=== PATIENT | female | born 1985 | race Caucasian/White ===

== ENCOUNTER 2020-12-04 16:08 | Emergency (ER) | payer BC, SELFPAY ==
[2020-12-04 16:11] VITALS: BP 157/68; PULSE 92; RESP 16; TEMP 36.7; O2SAT 100; BMI 23.0
--- NOTE | 2020-12-04 16:21 | ECG_ITS ---
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 Measurements Intervals [place] Rate: 80 P: 67 IA: 137 QRS: 57 QRSD: 83 T: 35 QT: 345 QTc: 398 Interpretive Statements SINUS RHYTHM WITH SINUS ARRHYTHMIA POSSIBLE RIGHT VENTRICULAR CONDUCTION DELAY [RSR (QR) IN V1/V2] MINIMAL ST DEPRESSION [0.025+ mV ST DEPRESSION] No previous ECG available for comparison Electronically Signed On 12-05-2020 0:00:01 CDT by Izzy Jackson M.D. [id number] f
--- NOTE | 2020-12-04 16:21 | XRR_ITS ---
PROCEDURE INFORMATION: Exam: XR Chest Exam date and time: 12/04/2020 4:21 PM Age: 35 years old Clinical indication: Pain; Angina pectoris; Additional info: Chest pain TECHNIQUE: Imaging protocol: XR of the chest. Views: 1 view. COMPARISON: No relevant prior studies available. FINDINGS: Lungs: Unremarkable. No consolidation. Pleural spaces: Unremarkable. No pleural effusion. No pneumothorax. Heart/Mediastinum: Unremarkable. No cardiomegaly. Bones/joints: Thoracolumbar curvature. XR/XR chest 1V portable [id number] IMPRESSION: No acute findings.
[2020-12-04 16:45] VITALS: BP 107/66; PULSE 60; O2SAT 98
[2020-12-04 17:11] VITALS: BP 107/66; PULSE 63; O2SAT 99
--- NOTE | 2020-12-04 17:18 | W.ED.GENADLT ---
Documented by User: Jayde Adler MD 12/05/20 11:08 HPI - General Adult General: Chief complaint: Chest Pain Stated complaint: CP Time Seen by Provider: 12/04/20 16:21 History of Present Illness: HPI narrative: CC: Chest Pain HPI: This is a 35yo patient hx of primary lyme disease who successfully underwent full abx last month presenting to the ED complaining of acute sudden onset intermittent left upper chest pain x 30 minutes WITHOUT radiation to the back or shoulders. No associated with shortness of breath, chest pain or dyspnea on exertion. Pain is not tearing in nature and does not radiate to the back. Pain not associated with vomiting or PO intake. Denies any recent sympathomimetic drug use. Patient denies any cough. Denies palpitations, dysphagia, diaphoresis, radiation of pain to bilateral arms, jaw. Denies F/N/V/D. Patient denies any recent immobility, surgery, unilateral leg swelling, or prior PE. Patient denies any orthopnea. Patient is a progesterone only IUD and has had a recent flight of only 1 hr to [place] without any leg swelling. Currently chest pain free. In addition, patient reported 1 month of palpitations since treatment for lyme disease. She denies any syncope. Reports improvement in joint pain and resolution of thigh rash. Onset: 30 minutes ago Duration: Chest pain Location: home Severity: mild/moderate Review of Systems Narrative: Constitutional: No fever, no chills. HEENT: No vision changes, no sore throat. CV:+chest pain, +palpitations. PULM: No cough, no dyspnea. GI: No abdominal pain, no N/V/D. : No dysuria, no frequency, no hematuria. MSKEL: No arthralgias, no edema. SKIN: No new rashes, no lesions. NEURO: No headache, no focal weakness. HEME: No easy bleeding or bruising. PSYCH: No change in mood or affect. [facility] ED Female Reproductive History: Date of last menstrual period: 09/17/20 Physical Exam Narrative: EXAM NARRATIVE: Head: Atraumatic, normocephalic Eyes: PERRL, EOMI, conjunctiva without injection ENT: Throat without erythema, lesions or exudate, MMM NECK: Supple, trachea midline, no JVD LUNGS: LCTA CV: RRR, S1,S2, no murmurs, rubs, gallops. 2+ peripheral pulses in UEs ABDOMEN: Soft, nontender, nondistended, BS x4, no rigidity, no guarding, no rebound EXTREMITY: Normal ROM, no pitting edema, no calf tenderness to palpation SKIN: No rash or erythema NEURO: Awake and alert. No focal motor deficits. PSYCH: Normal mood and affect. Course Vital Signs: Vital signs: Vital Signs Temperature 98.0 F 12/04/20 16:11 Pulse Rate 63 12/04/20 19:23 Respiratory Rate 22 H 12/04/20 19:23 Blood Pressure 111/78 12/04/20 19:23 Pulse Oximetry 99 12/04/20 19:23 MDM - General Adult MDM Narrative: Medical decision making narrative: [35]yo patient w/ hx of recent lyme disease who completed 2 weeks of abx presenting to the ED With acute substernal chest pain X 30 minutes ago. Given History And Exam today I have no suspicion ACS/UA/NSTEMI. Today, I have NO suspicion for pneumothorax, pneumonia, pulmonary embolus, tamponade, aortic dissection or other emergent problem as a cause for this presentation. ECG did not show any signs of acute STEMI. Workup: ECG, CXR, CBC, BMP, Troponin x 2 Intervention: Tylenol Findings: ECG: No overt evidence of STEMI, no hyperacute T waves, localizable STD or T wave inversions. No evidence of Brugada?s sign, delta wave, epsilon wave, significantly prolonged QTc, or malignant arrhythmia. No Q waves. No findings of heart block or MS prolongation on EKG. Troponin: Negative x 2 Other Labs unremarkable for emergent problems. CXR: Without PTX, PNA, or widened mediastinum Disposition: Discharge. Given strict return precaution any worsening pain, fever/chills, focal weakness, difficulty breathing, any new or concerning complaints. Given patient's concern that this may be Lyme carditis even though there is no EKG findings and patient has underwent successful treatment, decision was made to have patient follow-up with cardiology should she have any further questions. Lab Data: Labs: Lab Results 12/04/20 12/04/20 12/04/20 17:06 17:06 17:06 WBC 7.1 10^3/uL 10^3/ uL (4.0-10.0) RBC 4.32 10^6/uL 10^6 /uL (4.1-5.3) Hgb 13.5 g/dL g/dL (11.5-15.3) Hct 41.5 % % (37.0-47.0) MCV 96.1 fl fl (81-99) MCH 31.3 pg pg (28.0-34.0) MCHC 32.5 g/dL g/dL (30.0-36.0) RDW 11.8 % L % (12.1-15.1) Plt Count 235 10^3/cmm 10^3 /cmm (130-400) MPV 10.7 fL H fL (7.4-10.4) Neut % (Auto) 64.0 % % Lymph % (Auto) 26.8 % % [place] % (Auto) 7.1 % % Eos % (Auto) 1.3 % % Baso % (Auto) 0.7 % % Neut # (Auto) 4.52 10^3/uL 10^3 /uL (1.8-7.7) Lymph # (Auto) 1.9 10^3/uL 10^3/ uL (0.8-4.8) [place] # (Auto) 0.5 10^3/uL 10^3/ uL (0.2-0.9) Eos # (Auto) 0.1 10^3/uL 10^3/ uL (0.0-0.8) Baso # (Auto) 0.1 10^3/uL 10^3/ uL (0.0-0.1) Nucleated RBC % (a uto) 0 % % Nucleated RBCs # 0.0 /100WBC /100W BC Sodium 139 mmol/L mmol/L (136-145) Potassium 4.0 mmol/L mmol/L (3.5-5.1) Chloride 103 mmol/L mmol/L (98-107) Carbon Dioxide 25 mmol/L mmol/L (22-29) Anion Gap 15.0 (5-19) BUN 12 mg/dL mg/dL (6-20) Creatinine 0.7 mg/dL mg/dL (0.5-0.9) GFR Calculation 95.2 mL/min mL/mi n (90-130) Glucose 88 mg/dL mg/dL (65-115) Calculated Osmolal ity 287 mOsm/kg mOsm/ kg (285-295) Calcium 9.8 mg/dL mg/dL (8.5-10.5) Troponin T Gen 5 n g/L Troponin T 120 Min [place] Delta Troponin T Urine HCG, Qual Negative (Negative) 12/04/20 12/04/20 17:06 18:29 WBC RBC Hgb Hct MCV MCH MCHC RDW Plt Count MPV Neut % (Auto) Lymph % (Auto) [place] % (Auto) Eos % (Auto) Baso % (Auto) Neut # (Auto) Lymph # (Auto) [place] # (Auto) Eos # (Auto) Baso # (Auto) Nucleated RBC % (a uto) Nucleated RBCs # Sodium Potassium Chloride Carbon Dioxide Anion Gap BUN Creatinine GFR Calculation Glucose Calculated Osmolal ity Calcium Troponin T Gen 5 n g/L 6 ng/L ng/L (0-10) Troponin T 120 Min [place] 6.00 ng/L ng/L (0-10) Delta Troponin T TNP Urine HCG, Qual Imaging Data^: Other Imaging: Radiologist's impression: [employer] [id number] ReportSigned Patient: Melissa Walton #: [id number]: 1985Acct#:[id number]/Sex: 35 / FADM Date: 12/04/20Loc: ERRoom/Bed:Attending Dr: Ordering Provider/Ordering MD: Jayde Adler MD Date of Service: 12/04/20 Procedure(s): XR chest 1V portable [id number] Accession Number(s): [id number] Report Number: [id number] PROCEDURE INFORMATION: Exam: XR Chest Exam date and time: 12/04/2020 4:21 PM Age: 35 years old Clinical indication: Pain; Angina pectoris; Additional info: Chest pain TECHNIQUE: Imaging protocol: XR of the chest. Views: 1 view. COMPARISON: No relevant prior studies available. FINDINGS: Lungs: Unremarkable. No consolidation. Pleural spaces: Unremarkable. No pleural effusion. No pneumothorax. Heart/Mediastinum: Unremarkable. No cardiomegaly. Bones/joints: Thoracolumbar curvature. XR/XR chest 1V portable [id number] IMPRESSION: No acute findings. Dictated By:Hemant Aaron By:Hemant Aaron Date/Time:12/04/20 1725 Discharge Plan Discharge Patient Disposition: Home Clinical Impression: Chest pain Qualifiers: Chest pain type: unspecified Qualified Code(s): R07.9 - Chest pain, unspecified Condition: Stable Prescriptions: New acetaminophen 500 mg tablet 500 mg PO Q6H PRN (Reason: pain) 5 Days Qty: 20 RF: 0 Discharge Orders: Discharge ED (Routine); Ordered 12/04/20 Ordered By: Paxton aMry Discharge Diet: Advance as tolerated Discharge Activity: Resume usual activity Patient Instructions: Chest Pain (ED) Activity Restrictions/Additional Instructions: Our manager of case will have you follow-up with Cardiology in the next few days. You would be expected to have a phone call with our manager of case who will put you on the schedule. Come back to the emergency room if you have any worsening chest pain, shortness of breath, fever/chills, weakness in your arms or legs, numbness, or any new or concerning complaints Coding Level of Care Code ED Sunglass Clip Attacher for Chg Fwd Documented by User: Paxton Mary MD 12/04/20 19:08 HPI - General Adult General: Chief complaint: Chest Pain Stated complaint: CP Time Seen by Provider: 12/04/20 16:21 Course Vital Signs: Vital signs: Vital Signs Temperature 98.0 F 12/04/20 16:11 Pulse Rate 63 12/04/20 19:23 Respiratory Rate 22 H 12/04/20 19:23 Blood Pressure 111/78 12/04/20 19:23 Pulse Oximetry 99 12/04/20 19:23 MDM - General Adult MDM Narrative: Medical decision making narrative: Patient presents with chest pains atypical in nature. Her second troponin here is negative. She has no signs of acute coronary syndrome. She has no signs of pulmonary embolism or dissection. She is stable for discharge is to follow-up with PCP and return if worsening. Lab Data: Labs: Lab Results 12/04/20 12/04/20 12/04/20 17:06 17:06 17:06 WBC 7.1 10^3/uL 10^3/ uL (4.0-10.0) RBC 4.32 10^6/uL 10^6 /uL (4.1-5.3) Hgb 13.5 g/dL g/dL (11.5-15.3) Hct 41.5 % % (37.0-47.0) MCV 96.1 fl fl (81-99) MCH 31.3 pg pg (28.0-34.0) MCHC 32.5 g/dL g/dL (30.0-36.0) RDW 11.8 % L % (12.1-15.1) Plt Count 235 10^3/cmm 10^3 /cmm (130-400) MPV 10.7 fL H fL (7.4-10.4) Neut % (Auto) 64.0 % % Lymph % (Auto) 26.8 % % [place] % (Auto) 7.1 % % Eos % (Auto) 1.3 % % Baso % (Auto) 0.7 % % Neut # (Auto) 4.52 10^3/uL 10^3 /uL (1.8-7.7) Lymph # (Auto) 1.9 10^3/uL 10^3/ uL (0.8-4.8) [place] # (Auto) 0.5 10^3/uL 10^3/ uL (0.2-0.9) Eos # (Auto) 0.1 10^3/uL 10^3/ uL (0.0-0.8) Baso # (Auto) 0.1 10^3/uL 10^3/ uL (0.0-0.1) Nucleated RBC % (a uto) 0 % % Nucleated RBCs # 0.0 /100WBC /100W BC Sodium 139 mmol/L mmol/L (136-145) Potassium 4.0 mmol/L mmol/L (3.5-5.1) Chloride 103 mmol/L mmol/L (98-107) Carbon Dioxide 25 mmol/L mmol/L (22-29) Anion Gap 15.0 (5-19) BUN 12 mg/dL mg/dL (6-20) Creatinine 0.7 mg/dL mg/dL (0.5-0.9) GFR Calculation 95.2 mL/min mL/mi n (90-130) Glucose 88 mg/dL mg/dL (65-115) Calculated Osmolal ity 287 mOsm/kg mOsm/ kg (285-295) Calcium 9.8 mg/dL mg/dL (8.5-10.5) Troponin T Gen 5 n g/L Troponin T 120 Min [place] Delta Troponin T Urine HCG, Qual Negative (Negative) 12/04/20 12/04/20 17:06 18:29 WBC RBC Hgb Hct MCV MCH MCHC RDW Plt Count MPV Neut % (Auto) Lymph % (Auto) [place] % (Auto) Eos % (Auto) Baso % (Auto) Neut # (Auto) Lymph # (Auto) [place] # (Auto) Eos # (Auto) Baso # (Auto) Nucleated RBC % (a uto) Nucleated RBCs # Sodium Potassium Chloride Carbon Dioxide Anion Gap BUN Creatinine GFR Calculation Glucose Calculated Osmolal ity Calcium Troponin T Gen 5 n g/L 6 ng/L ng/L (0-10) Troponin T 120 Min [place] 6.00 ng/L ng/L (0-10) Delta Troponin T TNP Urine HCG, Qual Discharge Plan Discharge Patient Disposition: Home Clinical Impression: Chest pain Qualifiers: Chest pain type: unspecified Qualified Code(s): R07.9 - Chest pain, unspecified Condition: Stable Prescriptions: New acetaminophen 500 mg tablet 500 mg PO Q6H PRN (Reason: pain) 5 Days Qty: 20 RF: 0 Discharge Orders: Discharge ED (Routine); Ordered 12/04/20 Ordered By: Paxton Mary Discharge Diet: Advance as tolerated Discharge Activity: Resume usual activity Patient Instructions: Chest Pain (ED) Activity Restrictions/Additional Instructions: Our manager of case will have you follow-up with Cardiology in the next few days. You would be expected to have a phone call with our manager of case who will put you on the schedule. Come back to the emergency room if you have any worsening chest pain, shortness of breath, fever/chills, weakness in your arms or legs, numbness, or any new or concerning complaints Coding Level of Care Code ED Sunglass Clip Attacher for Salvatore Fischer
[2020-12-04 17:29] LABS: Basophils # 0.1 10^3/uL (0.0-0.1); Basophils % 0.7 %; Eosinophils # 0.1 10^3/uL (0.0-0.8); Eosinophils % 1.3 %; Hematocrit 41.5 % (37.0-47.0); Hemoglobin 13.5 g/dL (11.5-15.3); Lymphocytes # 1.9 10^3/uL (0.8-4.8); Lymphocytes % 26.8 %; Mean Corpuscular HGB Conc 32.5 g/dL (30.0-36.0); Mean Corpuscular Hemoglobin 31.3 pg (28.0-34.0); Mean Corpuscular Volume 96.1 fl (81-99); Mean Platelet Volume 10.7 fL (7.4-10.4); Monocytes # 0.5 10^3/uL (0.2-0.9); Monocytes % 7.1 %; Neutrophils # 4.52 10^3/uL (1.8-7.7); Nucleated Red Blood Cells % 0 %; Platelet Count 235 10^3/cmm (130-400); Red Blood Count 4.32 10^6/uL (4.1-5.3); Red Cell Distribution Width 11.8 % (12.1-15.1); White Blood Count 7.1 10^3/uL (4.0-10.0)
[2020-12-04 17:45] VITALS: BP 106/73; PULSE 75; O2SAT 100
[2020-12-04 17:47] LABS: Troponin T (5th) Once 6 ng/L (0-10)
[2020-12-04 17:48] LABS: Blood Urea Nitrogen 12 mg/dL (6-20); Calcium 9.8 mg/dL (8.5-10.5); Carbon Dioxide 25 mmol/L (22-29); Chloride 103 mmol/L (98-107); Glomerular Filtration Rate 95.2 mL/min (90-130); Glucose 88 mg/dL (65-115); Osmolality Calculated 287 mOsm/kg (285-295); Sodium 139 mmol/L (136-145)
[2020-12-04 18:20] VITALS: BP 111/78; PULSE 66; O2SAT 99
[2020-12-04 19:23] VITALS: BP 111/78; PULSE 63; RESP 22; O2SAT 99
--- NOTE | 2020-12-05 10:44 | DCPLANNER ---
Addendum entered by Damaris Castellano 04/04/21 15:00: Patient had a follow up appointment scheduled for 12.17.[address] Jackson at [facility] - patient did attend appointment. Original Note: personal lines account manager had message to schedule a follow up appointment for patient with heart care. personal lines account manager called heart care, spoke with Emelina, gave clinic patients information. A follow up appointment was scheduled for Thursday, December 17, 2020 at 2:[address] Jackson. personal lines account manager called patient with appointment information.
== END 2020-12-04 19:28 | disposition home or self-care (01) ==
PROVIDERS: Emergency Medicine; Emergency Provider Emergency Medicine
DX: R07.9 Chest pain, unspecified (principal)
CPT/HCPCS: 71045; 80048; 81025; 84484; 85025; 93005; 99283

== ENCOUNTER 2021-02-10 12:52 | Outpatient (CLI) | payer BC, SELFPAY ==
[2021-02-10 12:55] VITALS: BMI 23.0
--- NOTE | 2021-02-10 12:55 | ECG_ITS ---
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 Interpretive Statements NAME OF STUDY: TREADMILL STRESS ECHOCARDIOGRAM INDICATION: Chest Pain, PROCEDURE: At the baseline, the patient's blood pressure was 117/65 with a heart rate of 67. The baseline electrocardiogram showed normal sinus rhythm with normal ST-Ts.. The patient exercised for 7 minutes and 36 seconds on a standard Mani protocol. Patient attained a maximum heart rate of 189 beats per minute( 102 % of the maximum predicted heart rate) with a blood pressure at the peak exercise of 166/79 mm Hg. The EKG at the peak exercise revealed 1 to 1.[address] depressions in leads II, III, aVF, V5 and V6. Patient did not have any chest pain or any significant EKG changes with the exercise During the recovery phase, there were no new changes. The EKG changes, reverted back to the baseline. Blood pressure at the end of the recovery phase was 113/64 mm Hg with a heart rate of 99 per minute. Echocardiographic pictures were taken at the baseline, immediately following the peak exercise and during the recovery phase. CONCLUSION: 1. Abnormal EKG response to treadmill exercise suggesting inferolateral wall ischemia 2. No exercise-induced chest pain or cardiac arrhythmia 3. Fair exercise tolerance, attained a maximum of 10.2 METs 4. Please see separate report for the echocardiographic response to exercise. Electronically Signed On 02-14-2021 10:52:26 SUPERVISOR LACE TEARING by Izzy Jackson M.D. [id number]
[2021-02-10 13:42] VITALS: BP 113/64; PULSE 89
--- NOTE | 2021-02-10 13:45 | USCV_ITS ---
Melissa Walton Age: 35 Gender: F : 1985 Exam Date: 02/10/2021 13:19 Ordering Phys: Izzy Jackson MD ([email or web address]) Technologist: MUNIR Exam Location: [facility] Indication: Rhythm: Sinus Patient History: none Cardiac Medications: none Medications in past 24 hours: none Contrast: Stress Results Protocol: Mani Total dose(mL): Exercise Duration (min:sec): 7:36 METS: 10.2 Resting HR: 67 Resting BP: 117 / 65 Peak HR: 189 Peak BP: 172 / 79 Max Predicted HR: 185 102 % Max Predicted HR Target HR: 157 Double Product: 85162 Stress Summary: The patient's target heart rate was achieved BP Response: Normal Reason for Termination: Test terminated after reaching target heart rate (85% max predicted) Cardiac Symptoms: None ECG Analysis Resting ECG: Please see separate report Stress ECG: Please see separate report Arrhythmia: Please see separate report MEASUREMENTS (Male/Female) Normal Values FINDINGS The baseline echocardiogram with normal LV size and ejection fraction. Segmental wall motion analysis revealing no gross wall motion of normalities. With the peak exercise, there was mild diffuse hypokinesia of the septum and anteroseptal segments. During the recovery phase, the wall motion reverted back to the baseline. CONCLUSIONS 1. Exercise echocardiogram revealing some features of ischemia in the distribution of the left anterior descending artery. Because of some inconsistency in this finding, the reliability is somewhat questionable. 2. The exercise EKG showed some ischemic changes in the inferolateral leads(please refer to the separate exercise EKG report, for details). Dr Izzy Jackson MD FAC (Electronically Signed) Final Date: 12 February 2021 06:45 S
== END 2021-02-10 12:53 | disposition home or self-care (01) ==
LOC: CDL 12:53
PROVIDERS: Visit Provider Internal Medicine Cardiovascular Disease
DX: R07.89 Other chest pain (principal)
CPT/HCPCS: 93017; 93350